=== PATIENT | male | born 1985 | race Caucasian/White ===

== ENCOUNTER 2017-08-21 20:51 | Emergency (ER) | payer BC ==
[2017-08-21] MEDS ORDERED: Sodium Chloride 0.9% 1,000 ML IV ONE (20:52)
[2017-08-21] MEDS ORDERED: Ketorolac 30 MG/ML SDV IVPUSH ONE (20:52)
[2017-08-21] MEDS ORDERED: Ondansetron 4 MG/2 ML SDV IVPUSH ONE (20:52)
--- NOTE | 2017-08-21 20:54 | EDM.PDOC ---
ED HPI GENERAL MEDICAL PROBLEM - General Stated Complaint: POSSIBLE KIDNEY STONE Time Seen by Provider: 08/21/17 20:53 Source of Information: Reports: Patient - History of Present Illness INITIAL COMMENTS - FREE TEXT/NARRATIVE: HISTORY AND PHYSICAL: History of present illness: [Patient presented with left flank pain he rated 8 out of 10 on arrival was relieved by urination is had intermittent stabbing pain however 2out of 10 post arrival, patient ended up declining Toradol and Zofran as the pain was relieving. He had a history of renal stone on the left that he was aware of, at current no fever nausea vomiting chills sweats no chest pain shortness breath headache dizziness palpitation no bowel or urine symptoms Patient does have a trace hematuria with cultures to follow Review of systems: As per history of present illness and below otherwise all systems reviewed and negative. Past medical history: As per history of present illness and as reviewed below otherwise noncontributory. Surgical history: As per history of present illness and as reviewed below otherwise noncontributory. Social history: No reported history of drug or alcohol abuse. Family history: As per history of present illness and as reviewed below otherwise noncontributory. Physical exam: HEENT: Atraumatic, normocephalic, pupils reactive, negative for conjunctival pallor or scleral icterus, mucous membranes moist, throat clear, neck supple, nontender, trachea midline. Lungs: Clear to auscultation, breath sounds equal bilaterally, chest nontender. Heart: S1S2, regular, negative for clicks, rubs, or JVD. Abdomen: Soft, nondistended, nontender. Negative for masses or hepatosplenomegaly. Negative for costovertebral tenderness. Pelvis: Stable nontender. Genitourinary: Deferred. Rectal: Deferred. Extremities: Atraumatic, negative for cords or calf pain. Neurovascular unremarkable. Neuro: Awake, alert, oriented. Cranial nerves II through XII unremarkable. Cerebellum unremarkable. Motor and sensory unremarkable throughout. Exam nonfocal. Diagnostics: [CBC CMP UA urine culture blood cultures 2 ] DT abdomen pelvis no contrast Therapeutics: [Liter normal saline bolus Zofran 8 mg IV Toradol 30 mg IV ] Bactrim double strength by mouth twice a day #20 no refill Azithromycin 2 g by mouth now Impression: Left renal stone 2 mm Left flank pain resolved Trace hematuria Definitive disposition and diagnosis as appropriate pending reevaluation and review of above. Left flank Pain Score (Numeric/FACES): 6 - Related Data Allergies Allergy/AdvReac Type Severity Reaction Status Date / Time No Known Allergies Allergy Verified 08/21/17 21:02 Home Meds: Home Meds . [No Known Home Meds] 08/21/17 [History] Past Medical History - Past Health History Medical/Surgical History: Denies Medical/Surgical History - Infectious Disease History Infectious Disease History: Reports: None Social & Family History - Family History Family Medical History: Noncontributory - Tobacco Use Smoking Status *Q: Never Smoker Second Hand Smoke Exposure: No - Recreational Drug Use Recreational Drug Use: No ED ROS GENERAL - Review of Systems Review Of Systems: ROS reveals no pertinent complaints other than HPI. ED EXAM, GENERAL - Physical Exam Exam: See Below Course - Vital Signs Last Recorded V/S: Last Vital Signs Temp 97.8 F 08/21/17 20:51 Pulse 102 H 08/21/17 20:51 Resp 18 08/21/17 20:51 BP 124/81 08/21/17 20:51 Pulse Ox 97 08/21/17 20:51 - Orders/Labs/Meds Orders: Active Orders 24 hr Category Date Time Status Abdomen Pelvis wo Cont [CT] Stat Exams 08/21/17 21:04 Taken CULTURE BLOOD [BC] Stat Lab 08/21/17 21:03 Received CULTURE BLOOD [BC] Stat Lab 08/21/17 21:15 Received CULTURE URINE [RM] Stat Lab 08/21/17 21:04 Received Blood Culture x2 Reflex Set [OM.PC] Stat Oth 08/21/17 20:52 Ordered Labs: Laboratory Tests 08/21/17 08/21/17 08/21/17 Range/Units 21:03 21:03 21:04 WBC 10.24 (4.0-11.0) K/uL RBC 5.33 (4.50-5.90) M/uL Hgb 16.3 (13.0-17.0) g/dL Hct 46.2 (38.0-50.0) % MCV 86.7 (80.0-98.0) fL MCH 30.6 (27.0-32.0) pg MCHC 35.3 (31.0-37.0) g/dL RDW Std Deviation 40.5 (28.0-62.0) fl RDW Coeff of Justo 13 (11.0-15.0) % Plt Count 280 (150-400) K/uL MPV 10.50 (7.40-12.00) fL Neut % (Auto) 66.8 (48.0-80.0) % Lymph % (Auto) 26.9 (16.0-40.0) % [place] % (Auto) 5.1 (0.0-15.0) % Eos % (Auto) 0.8 (0.0-7.0) % Baso % (Auto) 0.4 (0.0-1.5) % Neut # (Auto) 6.9 H (1.4-5.7) K/uL Lymph # (Auto) 2.8 H (0.6-2.4) K/uL [place] # (Auto) 0.5 (0.0-0.8) K/uL Eos # (Auto) 0.1 (0.0-0.7) K/uL Baso # (Auto) 0.0 (0.0-0.1) K/uL Nucleated RBC % 0.0 /100WBC Nucleated RBCs # 0 K/uL Sodium 139 (136-148) mmol/L Potassium 3.9 (3.5-5.1) mmol/L Chloride 101 (98-107) mmol/L Carbon Dioxide 27.7 (21.0-32.0) mmol/L BUN 14 (7.0-18.0) mg/dL Creatinine 1.1 (0.8-1.3) mg/dL Est Cr Clr Drug Dosing 108.95 mL/min Estimated GFR (MDRD) > 60.0 ml/min Glucose 95 (74-106) mg/dL Calcium 9.4 (8.5-10.1) mg/dL Total Bilirubin 0.5 (0.2-1.0) mg/dL AST 24 (15-37) IU/L ALT 66 H (14-63) IU/L Alkaline Phosphatase 111 (46-116) U/L Total Protein 8.1 (6.4-8.2) g/dL Albumin 4.7 (3.4-5.0) g/dL Globulin 3.4 (2.0-3.5) g/dL Albumin/Globulin Ratio 1.4 (1.3-2.8) Urine Color YELLOW Urine Appearance CLEAR Urine pH 6.5 (5.0-8.0) Ur Specific [place] <= 1.005 (1.001-1.035) Urine Protein NEGATIVE (NEGATIVE) mg/dL Urine Glucose (UA) NEGATIVE (NEGATIVE) mg/dL Urine Ketones NEGATIVE (NEGATIVE) mg/dL Urine Occult Blood TRACE-INTACT (NEGATIVE) Urine Nitrite NEGATIVE (NEGATIVE) Urine Bilirubin NEGATIVE (NEGATIVE) Urine Urobilinogen 0.2 (<2.0) EU/dL Ur Leukocyte Esterase NEGATIVE (NEGATIVE) Urine RBC 0-1 (0-2/HPF) Urine WBC 0-1 (0-5/HPF) Ur Epithelial Cells RARE (NONE-FEW) Urine Bacteria RARE (NEGATIVE) Meds: Medications Discontinued Medications Generic Name Dose Route Start Last Admin Trade Name Freq PRN Reason Stop Dose Admin Sodium Chloride 1,000 mls @ 999 mls/hr 08/21/17 20:52 Normal Saline IV 08/21/17 21:52 STAT ONE Ketorolac Tromethamine 30 mg 08/21/17 20:52 Toradol IVPUSH 08/21/17 20:53 ONETIME ONE Ondansetron HCl 8 mg 08/21/17 20:52 Zofran IVPUSH 08/21/17 20:53 ONETIME ONE Departure - Departure Time of Disposition: 22:31 Disposition: Home, Self-Care 01 Condition: Good Clinical Impression: Renal colic on left side - Discharge Information Additional Instructions: Medication as prescribed Return if symptoms persist or worsen or new concerning symptoms develop Follow-up with primary care in 2 weeks sooner as needed Urine cultures are pending at this time The following information is given to patients seen in the emergency department who are being discharged to home. This information is to outline your options for follow-up care. We provide all patients seen in our emergency department with a follow-up referral. The need for follow-up, as well as the timing and circumstances, are variable depending upon the specifics of your emergency department visit. If you don't have a primary care physician on staff, we will provide you with a referral. We always advise you to contact your personal physician following an emergency department visit to inform them of the circumstance of the visit and for follow-up with them and/or the need for any referrals to a consulting specialist. The emergency department will also refer you to a specialist when appropriate. This referral assures that you have the opportunity for follow-up care with a specialist. All of these measure are taken in an effort to provide you with optimal care, which includes your follow-up. Under all circumstances we always encourage you to contact your private physician who remains a resource for coordinating your care. When calling for follow-up care, please make the office aware that this follow-up is from your recent emergency room visit. If for any reason you are refused follow-up, please contact the [facility] emergency department at and asked to speak to the emergency department charge nurse. - My Orders Last 24 Hours: My Active Orders 08/21/17 20:52 Blood Culture x2 Reflex Set [OM.PC] Stat 08/21/17 21:03 CULTURE BLOOD [BC] Stat 08/21/17 21:04 Abdomen Pelvis wo Cont [CT] Stat CULTURE URINE [RM] Stat 08/21/17 21:15 CULTURE BLOOD [BC] Stat - Assessment/Plan Last 24 Hours: My Active Orders 08/21/17 20:52 Blood Culture x2 Reflex Set [OM.PC] Stat 08/21/17 21:03 CULTURE BLOOD [BC] Stat 08/21/17 21:04 Abdomen Pelvis wo Cont [CT] Stat CULTURE URINE [RM] Stat 08/21/17 21:15 CULTURE BLOOD [BC] Stat
[2017-08-21 21:37] LABS: CHLORIDE,CL 101 mmol/L (98-107); SODIUM,NA 139 mmol/L (136-148)
[2017-08-21] MEDS ORDERED: Azithromycin 250 MG Tab PO STA (22:30)
[2017-08-21 22:39] VITALS: BP 120/79
--- NOTE | 2017-08-23 15:29 | CT ---
EXAM DATE: 08/21/17 PATIENT'S AGE: 31 Patient: AVANI VELAZQUEZ Facility: [place], [place] Site . Site : 1985 Study: CT Abdomen/Pelvis wo cont [id number] 9:35:50 PM Ordering Physician: Ryley Tian Final Report: Left flank pain technique noncontrast CT abdomen pelvis with coronal sagittal reformat images obtained. FINDINGS: 2 mm right middle lobe pulmonary nodule series 201 image 1. Unenhanced liver spleen gallbladder pancreas adrenal glands are unremarkable. Nonobstructing left lower pole calculus. No hydronephrosis. Urinary bladder is unremarkable. Prostate gland is unremarkable. The bowel is unremarkable. Normal appendix appear no abdominal aortic aneurysm. No inflammatory change. Osseous structures are unremarkable. IMPRESSION: 1. No acute findings in the abdomen pelvis. Nonobstructing left lower pole calculus. No hydronephrosis or nephrolithiasis. 2. 2 millimeter right middle lobe pulmonary nodule. Follow-up per Fleischner society guidelines. Please note that all CT scans at this facility use dose modulation, iterative reconstruction, and/or weight-based dosing when appropriate to reduce radiation dose to as low as reasonably achievable. Dictated by Rebecca Carlin MD @ Aug 21 2017 10:17PM (Electronic Signature) Report Signed by Proxy. MARCELLE
== END 2017-08-21 22:50 | disposition home or self-care (01) ==
LOC: MW.ED 20:51
DX: N20.0 Calculus of kidney (principal)
CPT/HCPCS: 74176; 80053; 81001; 85025; 87040; 87086; 87491; 87591; 99284; A9270; 99283

== ENCOUNTER 2017-11-13 23:36 | Emergency (ER) | payer BC ==
[2017-11-13] MEDS ORDERED: Sodium Chloride 0.9% 1,000 ML IV ONE (23:52)
[2017-11-13] MEDS ORDERED: Ondansetron 4 MG/2 ML SDV IVPUSH ONE (23:52)
[2017-11-14 00:36] LABS: CHLORIDE,CL 104 mmol/L (98-107); SODIUM,NA 141 mmol/L (136-148)
--- NOTE | 2017-11-14 01:56 | EDM.PDOC ---
ED HPI GENERAL MEDICAL PROBLEM - General Chief Complaint: General Stated Complaint: DON'T FEEL GOOD AND SHORTNESS OF BREATH Time Seen by Provider: 11/14/17 01:53 Source of Information: Reports: Patient - History of Present Illness INITIAL COMMENTS - FREE TEXT/NARRATIVE: HISTORY AND PHYSICAL: History of present illness: [Patient presents with 24-48 hours of intermittent dizziness dizziness and itching ears, he also has sinus pain and pressure left greater than right over maxillary sinus Today after eating at [employer] he complained of some mild nausea is in no distress no fever chills sweats no vomiting no chest pain shortness breath headache dizziness or palpitation no bowel or urine symptoms at current ] Review of systems: As per history of present illness and below otherwise all systems reviewed and negative. Past medical history: As per history of present illness and as reviewed below otherwise noncontributory. Surgical history: As per history of present illness and as reviewed below otherwise noncontributory. Social history: No reported history of drug or alcohol abuse. Family history: As per history of present illness and as reviewed below otherwise noncontributory. Physical exam: HEENT: Atraumatic, normocephalic, pupils reactive, negative for conjunctival pallor or scleral icterus, mucous membranes moist, throat clear, neck supple, nontender, trachea midline. Bilateral ear effusion noted there is otitis media on the right red obscured landmarks no mastoid tenderness right or left no pain with movement of the auricle oropharynx is clear no meningeal sign sinus pain and pressure left greater than right Lungs: Clear to auscultation, breath sounds equal bilaterally, chest nontender. Heart: S1S2, regular, negative for clicks, rubs, or JVD. Abdomen: Soft, nondistended, nontender. Negative for masses or hepatosplenomegaly. Negative for costovertebral tenderness. Pelvis: Stable nontender. Genitourinary: Deferred. Rectal: Deferred. Extremities: Atraumatic, negative for cords or calf pain. Neurovascular unremarkable. Neuro: Awake, alert, oriented. Cranial nerves II through XII unremarkable. Cerebellum unremarkable. Motor and sensory unremarkable throughout. Exam nonfocal. Diagnostics: [CBC CMP UA ] Therapeutics: [Amoxicillin Claritin ] Impression: [ sinusitis Otitis media on the right Bilateral ear effusion Nausea and dizziness resolved ] Definitive disposition and diagnosis as appropriate pending reevaluation and review of above. Generalized Pain Score (Numeric/FACES): 3 - Related Data Allergies Allergy/AdvReac Type Severity Reaction Status Date / Time No Known Allergies Allergy Verified 08/21/17 21:02 Home Meds: Home Meds . [No Known Home Meds] 08/21/17 [History] Past Medical History - Past Health History Medical/Surgical History: Denies Medical/Surgical History Genitourinary History: Reports: Renal Calculus - Infectious Disease History Infectious Disease History: Reports: None Social & Family History - Family History Family Medical History: Noncontributory - Tobacco Use Smoking Status *Q: Never Smoker ED ROS GENERAL - Review of Systems Review Of Systems: See Below ED EXAM, GENERAL - Physical Exam Exam: See Below Course - Vital Signs Last Recorded V/S: Last Vital Signs Temp 97.3 F 11/13/17 23:53 Pulse 70 11/13/17 23:53 Resp 16 11/13/17 23:53 BP 121/73 11/13/17 23:53 Pulse Ox 96 11/13/17 23:53 - Orders/Labs/Meds Orders: Active Orders 24 hr Category Date Time Status UA W/MICROSCOPIC [URIN] Stat Lab 11/14/17 01:15 Ordered Labs: Laboratory Tests 11/14/17 11/14/17 11/14/17 Range/Units 00:00 00:00 01:15 WBC 9.30 (4.0-11.0) K/uL RBC 5.18 (4.50-5.90) M/uL Hgb 15.8 (13.0-17.0) g/dL Hct 44.6 (38.0-50.0) % MCV 86.1 (80.0-98.0) fL MCH 30.5 (27.0-32.0) pg MCHC 35.4 (31.0-37.0) g/dL RDW Std Deviation 39.9 (28.0-62.0) fl RDW Coeff of Justo 13 (11.0-15.0) % Plt Count 303 (150-400) K/uL MPV 10.50 (7.40-12.00) fL Neut % (Auto) 50.5 (48.0-80.0) % Lymph % (Auto) 40.6 H (16.0-40.0) % [place] % (Auto) 5.7 (0.0-15.0) % Eos % (Auto) 2.9 (0.0-7.0) % Baso % (Auto) 0.3 (0.0-1.5) % Neut # (Auto) 4.7 (1.4-5.7) K/uL Lymph # (Auto) 3.8 H (0.6-2.4) K/uL [place] # (Auto) 0.5 (0.0-0.8) K/uL Eos # (Auto) 0.3 (0.0-0.7) K/uL Baso # (Auto) 0.0 (0.0-0.1) K/uL Nucleated RBC % 0.0 /100WBC Nucleated RBCs # 0 K/uL Sodium 141 (136-148) mmol/L Potassium 3.9 (3.5-5.1) mmol/L Chloride 104 (98-107) mmol/L Carbon Dioxide 27.2 (21.0-32.0) mmol/L BUN 17 (7.0-18.0) mg/dL Creatinine 1.3 (0.8-1.3) mg/dL Est Cr Clr Drug Dosing 93.97 mL/min Estimated GFR (MDRD) > 60.0 ml/min Glucose 130 H (74-106) mg/dL Calcium 8.9 (8.5-10.1) mg/dL Total Bilirubin 0.4 (0.2-1.0) mg/dL AST 22 (15-37) IU/L ALT 58 (14-63) IU/L Alkaline Phosphatase 85 (46-116) U/L Creatine Kinase 159 (26-308) U/L Troponin I < 0.050 (0.000-0.056) ng/mL Total Protein 7.6 (6.4-8.2) g/dL Albumin 4.3 (3.4-5.0) g/dL Globulin 3.3 (2.0-3.5) g/dL Albumin/Globulin Ratio 1.3 (1.3-2.8) Urine Color YELLOW Urine Appearance SLT CLOUDY Urine pH 6.5 (5.0-8.0) Ur Specific [place] 1.025 (1.001-1.035) Urine Protein NEGATIVE (NEGATIVE) mg/dL Urine Glucose (UA) NEGATIVE (NEGATIVE) mg/dL Urine Ketones NEGATIVE (NEGATIVE) mg/dL Urine Occult Blood TRACE-INTACT (NEGATIVE) Urine Nitrite NEGATIVE (NEGATIVE) Urine Bilirubin NEGATIVE (NEGATIVE) Urine Urobilinogen 0.2 (<2.0) EU/dL Ur Leukocyte Esterase NEGATIVE (NEGATIVE) Urine RBC 0-3 (0-2/HPF) Urine WBC 0-2 (0-5/HPF) Ur Epithelial Cells RARE (NONE-FEW) Amorphous Sediment MODERATE (NEGATIVE) Urine Bacteria FEW (NEGATIVE) Meds: Medications Discontinued Medications Generic Name Dose Route Start Last Admin Trade Name Freq PRN Reason Stop Dose Admin Sodium Chloride 1,000 mls @ 999 mls/hr 11/13/17 23:52 11/14/17 00:08 Normal Saline IV 11/14/17 00:52 999 mls/hr STAT ONE Administration Ondansetron HCl 8 mg 11/13/17 23:52 11/14/17 00:13 Zofran IVPUSH 11/13/17 23:53 8 mg ONETIME ONE Administration Departure - Departure Time of Disposition: 01:54 Disposition: Home, Self-Care 01 Preliminary Cause of *Q: Other_Special Instruction Condition: Good Clinical Impression: Otitis media, Sinusitis, Eustachian tube dysfunction - Discharge Information Referrals: PCP,None [Primary Care Provider] - Additional Instructions: Medication as prescribed Return if symptoms persist or worsen Follow-up with primary care in 2 weeks sooner as needed [facility] - Primary Care [address] [place] [id number] The following information is given to patients seen in the emergency department who are being discharged to home. This information is to outline your options for follow-up care. We provide all patients seen in our emergency department with a follow-up referral. The need for follow-up, as well as the timing and circumstances, are variable depending upon the specifics of your emergency department visit. If you don't have a primary care physician on staff, we will provide you with a referral. We always advise you to contact your personal physician following an emergency department visit to inform them of the circumstance of the visit and for follow-up with them and/or the need for any referrals to a consulting specialist. The emergency department will also refer you to a specialist when appropriate. This referral assures that you have the opportunity for follow-up care with a specialist. All of these measure are taken in an effort to provide you with optimal care, which includes your follow-up. Under all circumstances we always encourage you to contact your private physician who remains a resource for coordinating your care. When calling for follow-up care, please make the office aware that this follow-up is from your recent emergency room visit. If for any reason you are refused follow-up, please contact the [facility] emergency department at and asked to speak to the emergency department charge nurse. - My Orders Last 24 Hours: My Active Orders 11/14/17 01:15 UA W/MICROSCOPIC [URIN] Stat - Assessment/Plan Last 24 Hours: My Active Orders 11/14/17 01:15 UA W/MICROSCOPIC [URIN] Stat
[2017-11-14 02:10] VITALS: BP 117/68
== END 2017-11-14 02:07 | disposition home or self-care (01) ==
LOC: MW.ED 23:36
DX: H66.91 Otitis media, unspecified, right ear (principal); H65.93 Unspecified nonsuppurative otitis media, bilateral; H69.90 Unspecified Eustachian tube disorder, unspecified ear; J32.9 Chronic sinusitis, unspecified
CPT/HCPCS: 80053; 81001; 82550; 84484; 85025; 96361; 96374; 99284; J2405; J7040